=== PATIENT | male | born 1970 | race Caucasian/White ===

== ENCOUNTER 2021-07-29 21:30 | Emergency (ER) | payer BC, SELFPAY ==
[2021-07-29 21:35] VITALS: BP 154/99; PULSE 86; RESP 18; TEMP 37.4; O2SAT 97; BMI 38.0
--- NOTE | 2021-07-29 21:47 | ED_ITS ---
HPI - General Adult General Chief complaint: Abdominal Pain Stated complaint: food poisoning Time Seen by Provider: 07/29/21 21:44 Source: patient Mode of arrival: Ambulatory Limitations: no limitations History of Present Illness HPI narrative: 50-year-old male who is here for evaluation of 3 days of generalized abdominal discomfort and diarrhea. No fevers. No vomiting. No urinary symptoms. He states it started after he ate some sushi. No one else around him has been sick. He did try 1 dose of Imodium without any improvement. Related Data Allergies Allergy/AdvReac Type Severity Reaction Status Date / Time hydrocodone Allergy Mild Verified 07/29/21 21:47 oxycodone Allergy Verified 07/29/21 21:47 Review of Systems Constitutional Constitutional: Reports system reviewed and no additional complaints, except as documented Gastrointestinal Gastrointestinal: Reports system reviewed and no additional complaints, except as documented Genitourinary Genitourinary: Reports system reviewed and no additional complaints, except as documented Integumentary/Breasts Skin/Breast: Reports system reviewed and no additional complaints, except as documented Patient History Medical History Healthy adult Social History Smoking Status: Never smoker Smoking Status: Never smoker alcohol intake frequency: holidays/special occasions only Substance Use Type: does not use Exam Initial Vital Signs Initial Vital Signs: Vital Signs Temperature 99.3 F 07/29/21 21:35 Pulse Rate 86 07/29/21 21:35 Respiratory Rate 18 07/29/21 21:35 Blood Pressure 154/99 H 07/29/21 21:35 Pulse Oximetry 97 07/29/21 21:35 Oxygen Delivery Method 07/29/21 21:35 Const General: cooperative and comfortable HENMT Head: normal to inspection Resp Effort & Inspection: normal respiratory effort Cardio Rate: regular rate GI Inspection: normal to inspection and non-distended Palpation: soft, No firm, No guarding and tender (Diffuse) Skin General: no rashes or lesions noted Neuro General: patient alert, patient awake and moves all extremities Extrem General: normal to inspection and capillary refill normal Course Orders Ordered: ED Orders 07/29/21 22:04 Complete Blood Count AUTO DIFF Stat 07/29/21 22:44 Comprehensive Metabolic Panel Stat Lipase Stat Discontinued Medications Sodium Chloride (Normal Saline 0.9%) 1,000 mls @ 1,000 mls/hr IV BOLUS ONE Stop: 07/29/21 22:46 Last Infusion: 07/29/21 23:26 Dose: 0 mls/hr Documented By: Admin: 07/29/21 22:10 Dose: 1,000 mls/hr Documented By: AP Vital Signs Vital signs: Vital Signs - 8 hr 07/29/21 21:35 Temperature 99.3 F Pulse Rate 86 Respiratory Rate 18 Blood Pressure 154/99 H Pulse Oximetry 97 Oxygen Delivery Method Room Air Medical Decision Making Lab Data Lab results reviewed: Yes I reviewed the patient's lab results. Result diagrams: 07/29/21 22:04 07/29/21 22:44 Labs: Lab Results 07/29/21 07/29/21 Range/Units 22:04 22:44 WBC 7.8 (4.5-11.0) X10^3/uL RBC 4.87 (4.5-5.9) X10^6/uL Hgb 14.1 (13.5-17.5) g/dL Hct 41.0 (41-53) % MCV 84.3 (80-100) fL MCH 28.9 (26-34) PG MCHC 34.3 (30-36) % RDW 13.7 (11.6-14.8) % Plt Count 258 (150-400) X10^3/uL Neut % (Auto) 63.3 (50-75) % Lymph % (Auto) 25.2 (25-40) % Josephine % (Auto) 9.6 (3-14) % Eos % (Auto) 1.1 L (2-4) % Baso % (Auto) 0.8 (0-2) % Neut # (Auto) 4900 (8290-3432) /uL Lymph # (Auto) 2000 (3131-7149) /uL Josephine # (Auto) 700 (0-900) /uL Eos # (Auto) 100 (0-450) /uL Baso # (Auto) 100 (0-100) /uL Sodium 133 L (137-145) mmol/L Potassium 3.7 (3.4-5.1) mmol/L Chloride 99 (98-107) mmol/L Carbon Dioxide 26 (22-32) mmol/L BUN 16 (9-20) mg/dL Creatinine 0.84 (0.66-1.25) mg/dL Estimated GFR > 60 (>60) mL/min BUN/Creatinine Ratio 19.0 (6-22) Glucose 137 H (70-100) mg/dL Calcium 8.2 L (8.4-10.2) mg/dL Total Bilirubin 0.5 (0.2-1.3) mg/dL AST 42 (17-59) IU/L ALT 54 H (<50) IU/L Alkaline Phosphatase 66 (38-126) U/L Total Protein 7.2 (6.3-8.2) g/dL Albumin 3.9 (3.5-5.0) g/dL Globulin 3.3 (1.7-4.1) g/dL Albumin/Globulin Ratio 1.2 (1.0-2.8) Lipase 61 (23-300) U/L MDM Narrative Medical decision making narrative: Patient does have diffuse abdominal tenderness but no for all a benign exam. Labs are unremarkable. He was not able to provide a stool sample for us. Is tolerating oral intake. Given his clinical exam today I feel that we can hold on any radiologic studies for now as I do have low suspicion for an acute intra- abdominal surgical pathology. We discussed the use of anti diarrheal medications. Discussed the importance of increasing his fluid intake. He was given return precautions. He expressed understanding and agreement. Discharge Plan Departure Patient Disposition: Home Clinical Impression: Diarrhea Instructions: Diarrhea Activity Restrictions/Additional Instructions: Be sure that you are increasing or fluid intake. Contact your primary doctor for a follow-up. Return to the emergency department for any new or worsening symptoms. Referrals: Carlos Espinoza DO [Primary Care Provider] - Visit Report Forms: Patient Portal/API
[2021-07-29] MEDS: SODIUM CHLORIDE 0.9% 1,000 ML 1000 ML IV (22:10)
[2021-07-29 22:21] LABS: Add Manual Diff / Slide Review NO; Basophils Absolute Auto 100 /uL (0-100); Basophils Percent Auto 0.8 % (0-2); Eosinophils Absolute Auto 100 /uL (0-450); Eosinophils Percent Auto 1.1 % (2-4); Hemoglobin 14.1 g/dL (13.5-17.5); Lymphocytes Absolute Auto 2000 /uL (1100-4500); Lymphocytes Percent Auto 25.2 % (25-40); Mean Corpuscular HGB Conc 34.3 % (30-36); Mean Corpuscular Hemoglobin 28.9 PG (26-34); Mean Corpuscular Volume 84.3 fL (80-100); Monocytes Absolute Auto 700 /uL (0-900); Monocytes Percent Auto 9.6 % (3-14); Neutrophils Absolute Auto 4900 /uL (1500-7000); Neutrophils Percent Auto 63.3 % (50-75); Platelet Count 258 X10^3/uL (150-400); Red Blood Cell Count 4.87 X10^6/uL (4.5-5.9); Red Cell Distribution Width 13.7 % (11.6-14.8); White Blood Cell Count 7.8 X10^3/uL (4.5-11.0)
[2021-07-29 23:06] LABS: Alanine Aminotransferase 54 IU/L (<50); Albumin 3.9 g/dL (3.5-5.0); Albumin Globulin Ratio 1.2 (1.0-2.8); Alkaline Phosphatase 66 U/L (38-126); Aspartate Aminotransferase 42 IU/L (17-59); Bilirubin Total 0.5 mg/dL (0.2-1.3); Blood Urea Nitrogen 16 mg/dL (9-20); Calcium 8.2 mg/dL (8.4-10.2); Carbon Dioxide 26 mmol/L (22-32); Chloride 99 mmol/L (98-107); Estimated Glomerular Filt Rate > 60 mL/min (>60); Globulin 3.3 g/dL (1.7-4.1); Glucose 137 mg/dL (70-100); HEMOLYSIS < 15 (0-50); Lipase 61 U/L (23-300); Potassium 3.7 mmol/L (3.4-5.1); Sodium 133 mmol/L (137-145); Total Protein 7.2 g/dL (6.3-8.2)
== END 2021-07-30 00:12 | disposition home or self-care (01) ==
PROVIDERS: Emergency Provider Emergency Medicine; Family Provider Internal Medicine; PCP Internal Medicine
DX: R19.7 Diarrhea, unspecified (principal)
CPT/HCPCS: 36415; 80053; 83690; 85025; 96360; 99284